=== PATIENT | male | born 1935 | race Caucasian/White ===

== ENCOUNTER 2017-10-13 11:16 | Observation (INO) ==
[2017-10-13] MEDS ORDERED: 0.9 % Sodium Chloride 1,000 ML IVC ONE (11:40)
--- NOTE | 2017-10-13 11:45 | Emergency Department Note ---
Disposition Clinical Impression: Dehydration, BILLY (acute kidney injury), Elevated troponin Disposition: Admitted As Inpatient Condition: Fair Time of Disposition: 15:25 General Adult HPI - General Chief complaint: ED Weakness Stated complaint: sore throat, weakness Time Seen by Provider: 10/13/17 11:23 Source: patient Mode of arrival: ambulatory Limitations: no limitations Nursing Notes Reviewed: Yes Vital Signs Reviewed: Yes - History of Present Illness HPI Narrative: Patient is an 82-year-old male with a past medical history of diabetes, HLD, HTN , and GERD presents for evaluation of sore throat and weakness. The patient states the sore throat began approximately 2 weeks ago, he was seen 9 days ago in which she was prescribed an antibiotic Augmentin and diagnosed with pharyngitis. States that his symptoms were improving with antibiotic however over the past 2-3 days she has notices there was become more scratchy, dry, any is a nonproductive cough due to the irritation of his throat. He reports fevers but does not recall any temperature being taken. Patient also is complaining of weight loss over the past week the amount of about 10 pounds. States that he is also felt weak over the past 3 months states a desire have the energy that he used to have to perform tasks, however he is able to perform his daily tasks of living including taking care of himself and his at home who has [employer]. Denies any productive cough, neck swelling, chest pain, shortness of breath, new back pain, abdominal pain, diarrhea, or vomiting. States he is having normal bowel movements his urination is normal. He is also seen about a month ago at [facility] ED and diagnosed with diverticulosis in which she does have a follow-up for a colonoscopy with GI. Pain Scale: 8 - Related Data Home Medications Medication Instructions Recorded Confirmed Ascorbate Calcium [Vitamin C] 500 mg PO DAILY 10/13/17 10/13/17 Aspirin Enteric Coated [Aspirin EC] 81 mg PO DAILY 10/13/17 10/13/17 Atorvastatin Calcium [Lipitor] 20 mg PO HS 10/13/17 10/13/17 Carvedilol Phosphate [Coreg Cr] 40 mg PO DAILY 10/13/17 10/13/17 Diltiazem HCl [Cardizem LA] 420 mg PO DAILY 10/13/17 10/13/17 Garlic [Odorless Garlic] 1,250 mg PO DAILY 10/13/17 10/13/17 Iron [Iron] 18 mg PO DAILY 10/13/17 10/13/17 Losartan Potassium [Cozaar] 100 mg PO DAILY 10/13/17 10/13/17 Multivitamin [One Daily 1 tab PO DAILY 10/13/17 10/13/17 Multivitamin] [place]-3/Dha/Epa/Fish Oil [Fish Oil 1 cap PO DAILY 10/13/17 10/13/17 1,000 mg Softgel] metFORMIN [Glucophage] 500 mg PO BIDWM 10/13/17 10/13/17 raNITIdine HCl [Zantac] 150 mg PO BID 10/13/17 10/13/17 Allergies Allergy/AdvReac Type Severity Reaction Status Date / Time No Known Allergies Allergy Verified 10/13/17 13:10 All systems ED: reviewed and negative except as stated. Review of Systems: As Per HPI Constitutional: Reports: fever, weakness, weight change. Denies: chills, night sweats ENT ED: Reports: throat pain. Denies: ear pain, dental pain, hearing loss, epistaxis, congestion, dysphagia Cardiovascular: Denies: chest pain, palpitations, dyspnea on exertion, edema, paroxysmal nocturnal dyspnea Respiratory: Reports: cough. Denies: dyspnea, wheezes, hemoptysis Gastrointestinal: Denies: abdominal pain, nausea, vomiting, diarrhea Genitourinary: Denies: urgency, dysuria Musculoskeletal: Denies: back pain, neck pain Integumentary: Denies: rash, abrasion Neurological: Denies: headache, weakness, numbness, paresthesias, confusion, abnormal gait Psychiatric: Denies: anxiety, depression Past Medical History - Past Medical History Attestation: Yes The following information was validated with the patient. Medical history: Reports: diabetes, GERD, hyperlipidemia, hypertension Psychiatric history: Reports: no psych history - Social History Smoking Status: Former smoker Smokeless Tobacco Status: No Alcohol use: Reports: occasionally Drug use: Reports: none Physical Exam CONSTITUTIONAL: Well-appearing; well-nourished; A&O X 3, in no apparent distress. Patient is sitting up in bed answer my questions appropriately. His vital signs are within normal limits. HEAD: Normocephalic; atraumatic EYES: PERRL, no scleral icterus NOSE: The nose is normal in appearance without rhinorrhea THROAT: There is no tonsillar swelling, uvula is midline, no intraoral lesions, mucous membranes are very dry. NECK: No JVD or distended neck veins. No cervical lymphadenopathy. Saw she soft tissue of the neck is soft without mass, induration or erythema. RESP: Normal chest excursion with respiration; breath sounds clear and equal bilaterally; no wheezes, rhonchi, or rales CARD: Regular rhythm, without murmurs, rub or gallop ABD: Non-distended; non-tender, soft, without rigidity, rebound or guarding,no pulsatile mass CHEST: No pain with palpation SKIN: Normal for age and race; warm and dry without diaphoresis ; no apparent lesions EXTREMITIES: Pulses are 2 plus and equal times 4 extremities, no peripheral edema or calf muscle pain NEUROLOGICAL: Patient is alert and oriented times three. Cranial nerves III- XII are intact. Sensory and motor functions are intact. Strength is 5/5 for flexion and extension in all 4 extremities. Patellar DTRS are equal and intact. Finger to nose testing is equal and normal bilaterally. - General Limitations: no limitations General appearance: alert, in no apparent distress Course Course Narrative: Patient's lab work returned and did show an elevation of his troponin which is 0.04 as well as BILLY. His EKG also showed an abnormality in lead V2. Given his presentation patient was given a dose of aspirin. Also discussed this patient' s case with the hospice on-call and discuss admitting the patient for IV hydration as well as trending troponins. They agree with this plan and accepted the patient. Vital Signs Temperature 97.6 F 10/13/17 11:18 Pulse Rate 65 10/13/17 11:18 Respiratory Rate 18 10/13/17 11:18 Blood Pressure 155/73 10/13/17 11:18 O2 Sat by Pulse Oximetry 95 10/13/17 11:18 Temperature 97.8 F 10/13/17 14:10 Pulse Rate 59 10/13/17 14:10 Respiratory Rate 14 10/13/17 14:10 Blood Pressure 161/76 10/13/17 14:10 O2 Sat by Pulse Oximetry 94 10/13/17 14:10 Oxygen Delivery Oxygen Delivery Room Air Medical Decision Making - Medical Records Medical records reviewed: Yes I reviewed the patient's medical records. - Lab Data Lab results reviewed: Yes I reviewed the patient's lab results. Result diagrams: 10/13/17 11:38 10/13/17 11:38 Lab Results 10/13/17 10/13/17 10/13/17 Range/Units 11:38 11:38 12:15 WBC 11.4 H (4.3-11.1) K/mcL RBC 4.18 L (4.19-5.50) M/mcL Hgb 11.9 L (12.9-16.9) g/dL Hct 36.6 L (37.5-50.1) % MCV 87.6 (83.0-100.0) fL MCH 28.5 (28.0-33.3) pg MCHC 32.5 (31.6-35.5) g/dL RDW 17.1 H (11.5-14.5) % Plt Count 198 (140-400) K/mcL MPV 11.3 (9.4-12.4) fL Seg Neutrophils % 30.0 % Band Neutrophils % 2.0 (0-4) % Lymphocytes % 62.0 % Monocytes % 4.0 % Basophils % 2.0 % Neutrophils # 3.7 (1.6-8.9) K/mcL Lymphocytes # 7.1 H (0.6-4.6) K/mcL Monocytes # 0.5 (0.0-1.3) K/mcL Basophils # 0.2 (0.0-0.2) K/mcL Nucleated RBCs/100 WBC 0.3 H (0) /100 WBC Reactive Lymphocytes Present A (Not Present) Platelet Estimate Normal (Normal) Anisocytosis 1+ A (Not Present) Sodium 140 (136-145) mEq/L Potassium 4.0 (3.5-5.1) mEq/L Chloride 107 (98-107) mEq/L Carbon Dioxide 25 (23-29) mEq/L BUN 21 (8-23) mg/dL Creatinine 1.42 H (0.70-1.30) mg/dL Est GFR ( Amer) 58 L (> 60) Est GFR (Non-Af Amer) 48 L (> 60) BUN/Creatinine Ratio 15 (6-26) Glucose 137 H (70-105) mg/dL Calculated Osmolality 295 (280-300) Calcium 9.2 (8.6-10.3) mg/dL Total Bilirubin 0.6 (0.3-1.0) mg/dL AST 62 H (13-39) Units/L ALT 99 H (7-52) Units/L Alkaline Phosphatase 311 H (34-104) Units/L Troponin I 0.04 H* (< 0.04) ng/mL Serum Total Protein 7.1 (6.4-8.9) g/dL Albumin 3.3 L (3.5-5.7) g/dL Globulin 3.8 H (2.4-3.5) g/dL Albumin/Globulin Ratio 0.9 L (1.1-2.2) TSH 2.262 (0.340-5.600) mcIU/mL Ur Specimen Adequacy See below A Urine Color Yellow (Yellow) Urine Clarity Clear (Clear) Urine pH 7.0 (5.0-8.0) pH Units Ur Specific [place] 1.014 (1.010-1.025) Urine Protein 30 H (Neg-Trace) mg/dL Urine Glucose (UA) Normal (Normal) mg/dL Urine Ketones Negative (Negative) mg/dL Urine Blood Negative (Negative) Urine Nitrite Negative (Negative) Urine Bilirubin Negative (Negative) Urine Urobilinogen Normal (Normal) mg/dL Ur Leukocyte Esterase Small H (Negative) Urine Microscopic RBC 5-15 H (0-3) per hpf Urine Microscopic WBC 5-15 H (0-3) per hpf Ur Squamous Epith Cells Many H (None-Few) per lpf Ur Transition Epith Cell Few (None-Few) per hpf Urine Bacteria None Seen (None-Few) per hpf Hyaline Casts Few (None-Few) per lpf Ur Culture Indicated? NO. A (NO) - Radiology Data Radiology results reviewed: Yes I reviewed the patient's radiology results. Chest X-Ray 10/13/17 11:40 IMPRESSION: No significant findings in the chest. D/ / Alexx Santoro MD / Alexx Santoro MD Interpreting Provider: Alexx Santoro MD Soft Tissue Neck X-Ray 10/13/17 11:44 IMPRESSION: No gross acute process. D/ / Emmanuel Moncada MD / Emmanuel Moncada MD Interpreting Provider: Emmanuel Moncada MD - EKG Data EKG #1 EKG attestation: Yes I reviewed and interpreted this EKG. EKG results narrative: EKG done at 11:38 shows sinus rhythm at a rate of 65 bpm. First-degree AV block. Left axis deviation. Incomplete LBBB. Isolated elevation in lead V21, no recipricol changes. No old EKG for comparison at this time. No concerns for ischemia. 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 Critical Care Time Critical Care Time: Yes Total Critical Care Time: 35 Attestation: Critical care time 35 minutes managing patient's acute kidney injury and the elevated troponin. Attestation Statement - Attestation Attestation: Patient was seen with resident physician. I reviewed the history, physical, assessment and plan, and agree with the findings. I also personally evaluated this patient and had [id number] time with this patient. 82-year-old male presents with continuation of sore throat for the last 2-3 weeks. Patient said his antibiotics ran out a day or so ago. He continues to have dry throat and sore throat especially when he swallows. He says it feels like a burning sensation. No fevers or chills. No chest pain or shortness of breath. Only other complaint is generalized weakness. He thinks that he lost may be 10 pounds in the last week or so. He does admit that he has not been eating and drinking as much as he typically does secondary to the sore throat. Review of systems as above remained reviewed negative. Physical exam vital signs were stable. ENT is unremarkable except for dry mucous membranes and mildly erythematous posterior pharynx. There is no tonsillar enlargement. There is no evidence of abscess. There is no swelling or airway compromise. The tongue is not swollen. Neck is supple is nontender there is no lymphadenopathy anteriorly or posteriorly. Heart is regular rhythm and rate. Lungs clear. Abdomen soft nontender. Extremities 1+ edema bilateral lower extremities. Neurologically intact. Skin no rashes. Psych normal ED course. We will do more workup for weakness. We will get a soft tissue lateral the neck just to make sure there is no obvious anatomic issue there, though from his symptoms I think he just has not completely resolved from the pharyngitis that he had. We will also retest for this. Patient needs some hydration we will do IV hydration to help with his decreased oral intake over the last couple weeks. The patient was stable throughout his stay in the ED, but multiple abnormalities were noted on electrolytes including a mildly elevated troponin, and acute kidney injury compared with his last creatinine test. He was given IV hydration, but will want to admit to the hospitalist service for trending troponins and see if we can get the kidney function improved with hydration. Hospitalist service was notified. I agree with resident physician assessment and plan.
[2017-10-13] MEDS ORDERED: Ondansetron 4 MG/2 ML VIAL IVP ONE (11:51)
[2017-10-13 12:16] LABS: Hematocrit 36.6 % (37.5-50.1); Hemoglobin 11.9 g/dL (12.9-16.9); Mean Corpuscular HGB Conc 32.5 g/dL (31.6-35.5); Mean Corpuscular Hemoglobin 28.5 pg (28.0-33.3); Mean Corpuscular Volume 87.6 fL (83.0-100.0); Mean Platelet Volume 11.3 fL (9.4-12.4); Nucleated Red Blood Cells 0.3 /100 WBC (0); Platelet Count 198 K/mcL (140-400); Red Blood Count 4.18 M/mcL (4.19-5.50); Red Cell Distribution Width 17.1 % (11.5-14.5)
[2017-10-13 12:19] LABS: Albumin 3.3 g/dL (3.5-5.7); Albumin/Globulin Ratio 0.9 (1.1-2.2); Bilirubin,Total 0.6 mg/dL (0.3-1.0); Calcium 9.2 mg/dL (8.6-10.3); Globulin 3.8 g/dL (2.4-3.5); Total Protein 7.1 g/dL (6.4-8.9)
[2017-10-13 12:24] LABS: Bilirubin,Urine Negative (Negative); Blood,Urine Negative (Negative); Clarity,Urine Clear (Clear); Color,Urine Yellow (Yellow); Glucose,Urine (UA) Normal (Normal); Ketones,Urine Negative (Negative); Leukocyte Esterase,Urine Small (Negative); Nitrite,Urine Negative (Negative); Protein,Urine 30 mg/dL (Neg-Trace); Specific Gravity,Urine 1.014 (1.010-1.025); Urobilinogen,Urine Normal (Normal)
[2017-10-13 12:26] LABS: Troponin I 0.04 ng/mL (< 0.04)
[2017-10-13 12:27] LABS: Bacteria,Urine None Seen per hpf (None-Few); Squamous Epithelial Cell,Urine Many per lpf (None-Few)
[2017-10-13 12:29] LABS: Anisocytosis 1+ (Not Present); Basophils # 0.2 K/mcL (0.0-0.2); Lymphocytes # 7.1 K/mcL (0.6-4.6); Monocytes # 0.5 K/mcL (0.0-1.3); Neutrophils # 3.7 K/mcL (1.6-8.9); Platelet Estimate Normal (Normal)
[2017-10-13 12:30] LABS: Transitional Epi Cells,Urine Few per hpf (None-Few)
[2017-10-13 12:31] LABS: Hyaline Casts,Urine Few per lpf (None-Few)
[2017-10-13 12:32] LABS: Thyroid Stimulating Hormone 2.262 mcIU/mL (0.340-5.600)
[2017-10-13 12:37] LABS: Reactive Lymphocytes Present (Not Present)
[2017-10-13] MEDS ORDERED: Aspirin 81 MG TAB.CHEW PO STA (12:52)
[2017-10-13] MEDS ORDERED: Naloxone 0.4 MG/ML INJ IVP PRN (15:50)
[2017-10-13] MEDS ORDERED: Acetaminophen 325 MG TABLET PO PRN (15:50)
[2017-10-13] MEDS ORDERED: 0.9 % Sodium Chloride 1,000 ML IVC SCH (16:00)
--- NOTE | 2017-10-13 16:14 | Internal Med History&Physical ---
Date of Encounter: 10/13/17 Time of Encounter: 16:00 Internal Medicine - H&P: HPI Admitted From: Emergency Dept Plans for Post Hospital Care: Home History of present illness: Mr. Woodruff is a 82 year old male with past medical history of HTN, DM-II, and former smoker quit 30 years ago. Pt states he presented with sore throat and weakness. He states symptoms started about 3 weeks ago. He was seen at [facility] ED and stated he was prescribed antibiotic but does not recall what the name of it was. Reports he had throat culture which grew 2 organism but not sure what those where. States sore throat persisted even after he he completed the antibiotic. States he drank milk recently and it burned going down. Also states the roof of her mouth burning when he sucked on a lozenge. Denies fever or chills. Positive nausea but denies vomiting. Denies diarrhea. Denies chest pain or SOB. Positive dry cough. Denies urinary symptoms. In ED WBC 11.4, hgb 11.9, hct 36.6, plt 198. Na 140, K 4.0, BUN 21, Cr 1.42, glucose 137. Troponin 0.04. Urine shows small leuks, WBC 5-15, many squamous cells. CT soft tissue neck 10/13/17 IMPRESSION: No gross acute process. Chest x ray IMPRESSION: No significant findings in the chest. Past Med Surg Social Fam HX - Past Medical History Medical history: diabetes, GERD, hyperlipidemia, hypertension Psychiatric history: no psych history - Past Surgical History Additional surgical history: L knee replacement - Social History Smoking Status: Former smoker Smokeless Tobacco Status: No Alcohol use: occasionally Drug use: none Internal Medicine - H&P: Meds Ascorbate Calcium [Vitamin C] 500 mg PO DAILY 10/13/17 [History] Aspirin Enteric Coated [Aspirin EC] 81 mg PO DAILY 10/13/17 [History] Atorvastatin Calcium [Lipitor] 20 mg PO HS 10/13/17 [History] Carvedilol Phosphate [Coreg Cr] 40 mg PO DAILY 10/13/17 [History] Diltiazem HCl [Cardizem LA] 420 mg PO DAILY 10/13/17 [History] Garlic [Odorless Garlic] 1,250 mg PO DAILY 10/13/17 [History] Iron [Iron] 18 mg PO DAILY 10/13/17 [History] Losartan Potassium [Cozaar] 100 mg PO DAILY 10/13/17 [History] Multivitamin [One Daily Multivitamin] 1 tab PO DAILY 10/13/17 [History] [place]-3/Dha/Epa/Fish Oil [Fish Oil 1,000 mg Softgel] 1 cap PO DAILY 10/13/17 [ History] metFORMIN [Glucophage] 500 mg PO BIDWM 10/13/17 [History] raNITIdine HCl [Zantac] 150 mg PO BID 10/13/17 [History] 3 Allergy/AdvReac Type Severity Reaction Status Date / Time No Known Allergies Allergy Verified 10/13/17 13:10 All Systems PM: A 10-system review of systems was performed and is negative for pertinent findings except as documented above in the HPI. - Constitutional Vitals: Temp Pulse Resp BP Pulse Ox 97.8 F 59 14 161/76 94 10/13/17 14:10 10/13/17 14:10 10/13/17 14:10 10/13/17 14:10 10/13/17 14:10 General appearance: Present: A&O X 3, no acute distress - Head Head exam: Present: atraumatic, normocephalic - Eye Eye exam: Present: PERRL, conjuntiva pink, sclera anicteric Pupils: Present: PERRL - Neck Neck exam general surgery: Present: supple, trachea midline. Absent: lymphadenopathy - Respiratory Respiratory exam: Present: CTAB. Absent: accessory muscle use, rales, rhonchi, wheezes - Cardiovascular Cardiovascular exam: Present: RRR, +S1, +S2. Absent: diastolic murmur, gallop, rubs, systolic murmur - GI/Abdominal GI/Abdominal exam: Present: normal bowel sounds, soft, no peritoneal signs. Absent: distended, tenderness - Extremities Exam Extremities exam: Present: warm, radial pulses palpable and symmetrical. Absent : calf tenderness, cyanotic, pedal edema - Neurological Exam Neurological exam: Present: CN II-XII intact, oriented X3, no focal deficits. Absent: pronater drift, facial droop, speech deficit - Skin Skin exam: Present: dry, intact Internal Med - H&P Results - Labs CBC & Chem 7: 10/13/17 11:38 10/13/17 11:38 - Assessment and plan (1) Sorethroat Current Visit: Yes Status: Acute Assessment and plan: Will order nystatin oral susp. Will give few more days of antibiotic. Will obtain culture results from [facility] ED. Will check viral throat culture. Recommended soft foods to patient for now till symptoms improve. (2) Dehydration Current Visit: Yes Status: Acute Assessment and plan: Will give IVF and check renal function in am. (3) BILLY (acute kidney injury) Current Visit: Yes Status: Acute Assessment and plan: Will check renal function qam. (4) Elevated troponin Current Visit: Yes Status: Acute Assessment and plan: not completely clear why troponin was ordered, only mildly elevated likely due to BILLY. Pt denies having any chest pain. - Time Spent With Patient Total time spent is greater than 50% in coordination of care (as documented) at patient's floor/unit and/or counseling patient: 25 - 35 minutes
[2017-10-13] MEDS: 0.9 % Sodium Chloride 1,000 ML IVC SCH (17:16)
[2017-10-13] MEDS: Nystatin SUSP 5 ML UD.LIQ PO SCH ×2 (17:16→20:19)
[2017-10-13] MEDS: Famotidine 20 MG TABLET PO SCH (20:16)
[2017-10-14 04:44] LABS: Basophils % 0.4 %; Eosinophils # 0.1 K/mcL (0.0-0.6); Eosinophils % 1.4 %; Hematocrit 33.3 % (37.5-50.1); Hemoglobin 10.5 g/dL (12.9-16.9); Immature Granulocytes % 1.6 % (0-4); Lymphocytes # 5.5 K/mcL (0.6-4.6); Lymphocytes % 56.8 %; Mean Corpuscular HGB Conc 31.5 g/dL (31.6-35.5); Mean Corpuscular Hemoglobin 28.1 pg (28.0-33.3); Monocytes # 0.8 K/mcL (0.0-1.3); Monocytes % 8.2 %; Neutrophils # 3.1 K/mcL (1.6-8.9); Nucleated Red Blood Cells 0.2 /100 WBC (0); Platelet Count 172 K/mcL (140-400); Red Blood Count 3.74 M/mcL (4.19-5.50); Red Cell Distribution Width 17.1 % (11.5-14.5); Segmented Neutrophils % 31.6 %
[2017-10-14 05:06] LABS: Platelet Estimate Normal (Normal)
[2017-10-14 05:09] LABS: BUN/Creatinine Ratio 13 (6-26); Blood Urea Nitrogen 18 mg/dL (8-23); Calcium 8.6 mg/dL (8.6-10.3); Carbon Dioxide 26 mEq/L (23-29); Chloride 108 mEq/L (98-107); Glucose 121 mg/dL (70-105); Osmolality,Calculated 293 (280-300); Potassium 3.6 mEq/L (3.5-5.1); Sodium 140 mEq/L (136-145); Troponin I 0.03 ng/mL (< 0.04); eGFR For African Americans > 60 (> 60); eGFR For Non-African Americans 50 (> 60)
[2017-10-14] MEDS: 0.9 % Sodium Chloride 1,000 ML IVC SCH ×2 (06:00→21:12)
[2017-10-14] MEDS ORDERED: DILTIAZEM HCL 420 MG PO SCH (09:00)
[2017-10-14] MEDS ORDERED: NON-FORMULARY MEDICATION 1 EACH EACH (Omega-3/Dha/Epa/Fish Oil [Fish Oil 1,000 Mg Softgel] PO SCH (09:00)
[2017-10-14] MEDS: Nystatin SUSP 5 ML UD.LIQ PO SCH ×4 (10:42→21:11)
[2017-10-14] MEDS: Aspirin Enteric Coated 81 MG Tablet PO SCH (10:43)
[2017-10-14] MEDS: DILTIAZEM CD PO SCH (10:43)
[2017-10-14] MEDS: Famotidine 20 MG TABLET PO SCH (10:44)
--- NOTE | 2017-10-14 14:58 | Internal Med Progress Note ---
Date of Encounter: 10/14/17 Time of Encounter: 11:40 - Assessment and plan (1) Mononucleosis Current Visit: Yes Status: Acute Assessment and plan: Monospot positive. Pt reports 3 week history of pharyngitis with little to no relief. Pt states that he has had antibiotics without relief. Anterior cervical lymphadenopathy noted on physical exam, tonsils +2. No exudate noted in throat. Symptomatic treatment with NSAIDs, Tylenol, throat lozenges and sprays. Encourage po intake. (2) BILLY (acute kidney injury) Current Visit: Yes Status: Acute Assessment and plan: Likely secondary to poor oral intake due to pharyngitis. Strep screen negative. Continue gentle IVF hydration with 0.9NS and monitor labs. Avoid nephrotoxins. (3) Dehydration Current Visit: Yes Status: Acute Assessment and plan: Acute, plan as above. (4) Elevated troponin Current Visit: Yes Status: Acute Assessment and plan: Unclear etiology, pt denies chest pain. Elevation was flat and adynamic in the setting of BILLY and dehydration, troponin returned to normal. (5) Sorethroat Current Visit: Yes Status: Acute Assessment and plan: Secondary to mono. Plan as above - Time Spent With Patient Total time spent is greater than 50% in coordination of care (as documented) at patient's floor/unit and/or counseling patient: less than 15 minutes - Constitutional Vitals: Temp Pulse Resp BP Pulse Ox 98.5 F 76 17 160/63 93 10/14/17 11:44 10/14/17 11:44 10/14/17 11:44 10/14/17 11:44 10/14/17 11:44 General appearance: Present: cooperative, A&O X 3, pleasant, no acute distress, answers questions appropriately - Head Head exam: Present: atraumatic, normal inspection, normocephalic - Eye Eye exam: Present: normal appearance, conjuntiva pink, sclera anicteric - Neck Neck exam general surgery: Present: lymphadenopathy, supple, trachea midline. Absent: tenderness - Respiratory Respiratory exam: Present: CTAB. Absent: accessory muscle use, chest wall tenderness, rales, respiratory distress, rhonchi, wheezes - Cardiovascular Cardiovascular exam: Present: RRR, +S1, +S2. Absent: diastolic murmur, gallop, rubs, systolic murmur - GI/Abdominal GI/Abdominal exam: Present: normal bowel sounds, soft, no peritoneal signs. Absent: distended, hepatomegaly, splenomegaly, tenderness - Extremities Exam Extremities exam: Present: normal capillary refill, normal inspection, warm, radial pulses palpable and symmetrical. Absent: calf tenderness, cyanotic, pedal edema, tenderness - Neurological Exam Neurological exam: Present: alert, oriented X3, no focal deficits. Absent: facial droop, speech deficit - Skin Skin exam: Present: dry, intact, normal color, warm. Absent: rash Internal Medicine: Result - Labs CBC & Chem 7: 10/14/17 04:26 10/14/17 04:26 Labs: Short CBC 10/14/17 Range/Units 04:26 WBC 9.7 (4.3-11.1) K/mcL Hgb 10.5 L (12.9-16.9) g/dL Hct 33.3 L (37.5-50.1) % Plt Count 172 (140-400) K/mcL Neutrophils # 3.1 (1.6-8.9) K/mcL BMP 10/14/17 04:26 Sodium 140 Potassium 3.6 Chloride 108 H Carbon Dioxide 26 BUN 18 Creatinine 1.36 H Glucose 121 H Calcium 8.6 Cardiac Enzymes 10/13/17 10/13/17 10/14/17 Range/Units 16:30 22:00 04:26 Troponin I 0.04 H* 0.04 H* 0.03 (< 0.04) ng/mL Consult Discharge Plan - Plan Referrals: Scott Vela DO [Primary Care Provider] -
[2017-10-14] MEDS: *HR* Metformin 500 MG TABLET PO SCH (17:31)
--- NOTE | 2017-10-15 07:03 | Electrocardiograph Report ---
[place] [id number] Test Date: 2017-10-13 Pat Name: Jere Woodruff Department: 103 Room: 3B46 Gender: M [employer]: : 1935 Requested By: Kev Dillard Order Number: [id number] Reading MD: Willard Gilmore Measurements Intervals [place] Rate: 65 P: -4 [place]: 278 QRS: -54 QRSD: 124 T: 90 QT: 428 QTc: 439 Interpretive Statements SINUS RHYTHM WITH FIRST DEGREE AV BLOCK WITH OCCASIONAL VENTRICULAR PREMATURE COMPLEXES MARKED LEFT AXIS DEVIATION LEFT VENTRICULAR HYPERTROPHY AND ST-T CHANGE POSSIBLE SEPTAL MYOCARDIAL INFARCTION , OF INDETERMINATE AGE Electronically Signed On 10-15-2017 7:02:04 EDT by Willard Gilmore
[2017-10-15] MEDS: Nystatin SUSP 5 ML UD.LIQ PO SCH (07:56)
[2017-10-15] MEDS: DILTIAZEM CD PO SCH (07:56)
[2017-10-15] MEDS: Aspirin Enteric Coated 81 MG Tablet PO SCH (07:57)
[2017-10-15] MEDS: *HR* Metformin 500 MG TABLET PO SCH (07:57)
[2017-10-15 08:43] LABS: Basophils # 0.1 K/mcL (0.0-0.2); Basophils % 0.5 %; Eosinophils # 0.2 K/mcL (0.0-0.6); Eosinophils % 1.7 %; Hematocrit 33.2 % (37.5-50.1); Hemoglobin 10.5 g/dL (12.9-16.9); Immature Granulocytes % 1.6 % (0-4); Lymphocytes % 52.4 %; Mean Corpuscular HGB Conc 31.6 g/dL (31.6-35.5); Mean Corpuscular Hemoglobin 27.6 pg (28.0-33.3); Mean Corpuscular Volume 87.1 fL (83.0-100.0); Mean Platelet Volume 11.1 fL (9.4-12.4); Monocytes # 0.8 K/mcL (0.0-1.3); Monocytes % 7.8 %; Neutrophils # 3.7 K/mcL (1.6-8.9); Platelet Count 176 K/mcL (140-400); Red Blood Count 3.81 M/mcL (4.19-5.50); Red Cell Distribution Width 17.2 % (11.5-14.5)
[2017-10-15 08:45] LABS: Lymphocytes # 5.3 K/mcL (0.6-4.6)
[2017-10-15] MEDS ORDERED: IRON 18 MG PO SCH (09:00)
[2017-10-15] MEDS ORDERED: GARLIC 1250 MG PO SCH (09:00)
[2017-10-15] MEDS ORDERED: Famotidine 20 MG TABLET PO SCH (09:00)
[2017-10-15] MEDS ORDERED: Multivit/Ca/Min/Fe/FA 1 TAB TABLET PO SCH (09:00)
[2017-10-15] MEDS ORDERED: Ascorbic Acid 500 MG TABLET PO SCH (09:00)
[2017-10-15 09:01] LABS: Platelet Estimate Normal (Normal); Reactive Lymphocytes Present (Not Present); Smudge Cells Present (Not Present)
--- NOTE | 2017-10-15 10:00 | Internal Med Progress Note ---
Date of Encounter: 10/15/17 Time of Encounter: 09:50 - Assessment and plan (1) Mononucleosis Current Visit: Yes Status: Acute (2) BILLY (acute kidney injury) Current Visit: Yes Status: Acute (3) Dehydration Current Visit: Yes Status: Acute (4) Elevated troponin Current Visit: Yes Status: Acute (5) Sorethroat Current Visit: Yes Status: Acute - Time Spent With Patient Total time spent is greater than 50% in coordination of care (as documented) at patient's floor/unit and/or counseling patient: - Constitutional Vitals: Temp Pulse Resp BP Pulse Ox 98.1 F 63 18 188/83 93 10/15/17 06:57 10/15/17 06:57 10/15/17 06:57 10/15/17 06:57 10/15/17 06:57 General appearance: Present: cooperative, A&O X 3, pleasant, no acute distress, answers questions appropriately Internal Medicine: Result - Labs CBC & Chem 7: 10/15/17 08:18 10/14/17 04:26 Labs: Short CBC 10/15/17 Range/Units 08:18 WBC 10.2 (4.3-11.1) K/mcL Hgb 10.5 L (12.9-16.9) g/dL Hct 33.2 L (37.5-50.1) % Plt Count 176 (140-400) K/mcL Neutrophils # 3.7 (1.6-8.9) K/mcL Consult Discharge Plan - Plan Referrals: Scott Vela DO [Primary Care Provider] -
[2017-10-15 10:08] LABS: BUN/Creatinine Ratio 13 (6-26); Blood Urea Nitrogen 14 mg/dL (8-23); Calcium 8.2 mg/dL (8.6-10.3); Chloride 107 mEq/L (98-107); Glucose 134 mg/dL (70-105); Osmolality,Calculated 292 (280-300); Potassium 3.4 mEq/L (3.5-5.1); Sodium 140 mEq/L (136-145); eGFR For African Americans > 60 (> 60); eGFR For Non-African Americans > 60 (> 60)
--- NOTE | 2017-10-15 10:09 | Discharge Summary ---
- NOTES TO OUTPATIENT PROVIDER Notes to Outpatient Provider: She was admitted for continued sore throat, weakness. Monospot positive. Symptomatic treatment. Patient noted have BILLY on admission, likely due to poor oral intake secondary to sore throat. Resolved with IVF hydration. Orders not resulted at time of discharge: Pending orders 10/13/17 15:45 Viral Culture,Non-Respiratory [RM] Stat 10/13/17 16:30 Culture,Blood [BC] Routine 10/15/17 08:18 Basic Metabolic Panel Routine Date of Encounter: 10/15/17 Time of Encounter: 09:50 - Discharge Diagnosis (1) Mononucleosis Priority: Primary Status: Acute Assessment and Plan: Pt states that he still has a sore throat and fatigue, but is feeling better. Continue symptomatic treatment. (2) BILLY (acute kidney injury) Priority: Secondary Status: Resolved Assessment and Plan: Likely secondary to poor oral intake due to pharyngitis. Resolved with IVF. (3) Dehydration Priority: Secondary Status: Resolved Assessment and Plan: Resolved. . (4) Elevated troponin Priority: Secondary Status: Acute Assessment and Plan: Unclear etiology, pt denies chest pain. Elevation was flat and adynamic in the setting of BILLY and dehydration, troponin returned to normal. (5) Sorethroat Priority: Secondary Status: Acute Assessment and Plan: Secondary to mono. Symptomatic treatment. Hospital course: Mr. Woodruff is a 82 year old male Discharge discussed with: patient, nurse - Time Spent with Patient Total time spent providing and/or coordinating discharge services: Less than 30 minutes - Discharge Medications Prescriptions: Phenol [Chloraseptic] 177 ml MM Q2HR PRN #1 bottle PRN Reason: Sore Throat Home Medications: Ascorbate Calcium [Vitamin C] 500 mg PO DAILY 10/13/17 [History] Aspirin Enteric Coated [Aspirin EC] 81 mg PO DAILY 10/13/17 [History] Atorvastatin Calcium [Lipitor] 20 mg PO HS 10/13/17 [History] Carvedilol Phosphate [Coreg Cr] 40 mg PO DAILY 10/13/17 [History] Diltiazem HCl [Cardizem LA] 420 mg PO DAILY 10/13/17 [History] Garlic [Odorless Garlic] 1,250 mg PO DAILY 10/13/17 [History] Iron 18 mg PO DAILY 10/13/17 [History] Losartan Potassium [Cozaar] 100 mg PO DAILY 10/13/17 [History] Multivitamin [One Daily Multivitamin] 1 tab PO DAILY 10/13/17 [History] [place]-3/Dha/Epa/Fish Oil [Fish Oil 1,000 mg Softgel] 1 cap PO DAILY 10/13/17 [ History] metFORMIN [Glucophage] 500 mg PO BIDWM 10/13/17 [History] raNITIdine HCl [Zantac] 150 mg PO BID 10/13/17 [History] Phenol [Chloraseptic] 177 ml MM Q2HR PRN #1 bottle 10/15/17 [Rx] Allergies/Adverse Reactions: 3 Allergy/AdvReac Type Severity Reaction Status Date / Time No Known Allergies Allergy Verified 10/13/17 13:10 Date of admission: 10/13/17 13:28 Primary care physician: Scott Vela DO Discharging clinician: Kinjal Godoy Anticipated date of discharge: 10/15/17 - Constitutional Vitals: Temp Pulse Resp BP Pulse Ox 98.1 F 63 18 188/83 93 10/15/17 06:57 10/15/17 06:57 10/15/17 06:57 10/15/17 06:57 10/15/17 06:57 General appearance: Present: cooperative, A&O X 3, pleasant, no acute distress, answers questions appropriately - Head Head exam: Present: atraumatic, normal inspection, normocephalic - Eye Eye exam: Present: normal appearance, conjuntiva pink, sclera anicteric - Neck Neck exam general surgery: Present: lymphadenopathy, supple, trachea midline. Absent: tenderness - Respiratory Respiratory exam: Present: CTAB. Absent: accessory muscle use, decreased breath sounds, rales, respiratory distress, rhonchi, wheezes - Cardiovascular Cardiovascular exam: Present: RRR, +S1, +S2. Absent: diastolic murmur, gallop, rubs, systolic murmur - GI/Abdominal GI/Abdominal exam: Present: normal bowel sounds, soft. Absent: distended, hepatomegaly, splenomegaly, tenderness - Extremities Exam Extremities exam: Present: normal capillary refill, normal inspection, warm, radial pulses palpable and symmetrical. Absent: calf tenderness, cyanotic, pedal edema, tenderness - Neurological Exam Neurological exam: Present: alert, oriented X3, no focal deficits. Absent: facial droop, speech deficit - Skin Skin exam: Present: dry, intact, normal color, warm. Absent: rash - Patient Status Disposition: Home, Self-Care Condition: Good Functional capacity at discharge: independent ambulation Overall status at discharge: patient is progressing back to baseline - Discharge Instructions Follow Up With: Scott Vela DO [Primary Care Provider] - Additional Instructions: Please follow up with your PCP in the next 5-7 days for a recheck. Symptomatic treatment for your sore throat and fatigue. Make sure that you are drinking plenty of fluids and getting plenty of rest. Make sure that you do not do any strenuous activities or injure your abdomen due to the possible enlargement of your spleen as is seen in [place]. Take your medications as directed and return to your normal activities once you are feeling better and are able. Do not eat or drink after others. Return to the ER as needed for any other problems or concerns, or if your symptoms become worse. - Diet and Activity Activity: increase activity as tolerated Diet: advance to your usual diet
[2017-10-15 10:13] VITALS: BP 167/72
[2017-10-15 11:13] LABS: Carbon Dioxide 26 mEq/L (23-29)
== END 2017-10-15 11:38 | disposition home or self-care (01) ==
LOC: EMEROO 11:16 → 3BNU 11:16
PROVIDERS: ADMIT Internal Medicine; ATTEND Hospitalist